=== PATIENT | male | born 1995 | race Native Hawaiian/Other Pacific Islander ===

== ENCOUNTER 2021-04-22 10:37 | Outpatient (CLI) | payer BC, OTHER | END 2021-04-22 19:10 | disposition home or self-care (01) | LOC: LAB 10:37 | PROVIDERS: ATTEND Nurse Practitioner Family | DX: U07.1 COVID-19 (principal); R50.9 Fever, unspecified; Z11.52 Encounter for screening for COVID-19 | CPT/HCPCS: 87635; G2023; U0003 ==

== ENCOUNTER 2021-11-26 08:31 | Outpatient (CLI) | payer OTHER | END 2021-11-26 18:54 | disposition home or self-care (01) | LOC: CT 08:31 | PROVIDERS: ATTEND Plastic Surgery | DX: S02.31XA Fracture of orbital floor, right side, initial encounter for closed fracture (principal) ==

== ENCOUNTER 2023-03-17 15:02 | Outpatient (CLI) | payer OTHER ==
[2023-03-17 15:27] LABS: PLATELET COUNT 290 K/uL (142-355)
[2023-03-17 15:58] LABS: POTASSIUM 3.8 mmol/L (3.6-5.2)
== END 2023-03-17 19:29 | disposition home or self-care (01) ==
LOC: LAB 15:02
PROVIDERS: ATTEND Nurse Practitioner Family
DX: R53.83 Other fatigue (principal); R53.81 Other malaise; R68.89 Other general symptoms and signs; Z13.220 Encounter for screening for lipoid disorders; Z13.1 Encounter for screening for diabetes mellitus; Z13.29 Encounter for screening for other suspected endocrine disorder
CPT/HCPCS: 80053; 80061; 82306; 83036; 84403; 84439; 84443; 85027